=== PATIENT | female | born 1960 | race Caucasian/White ===

== ENCOUNTER 2017-06-15 18:09 | Observation (INO) | payer BC ==
[2017-06-15 18:49] LABS: VBG BASE EXCESS 4.4 (-2.0-2.0); VBG CARBOXYHEMOGLOBIN 1.7 % T HGB (0.0-6.9); VBG HCO3- 30.3 meq/L (22-28); VBG HEMOGLOBIN 12.1; VBG O2 SATURATION 51.5 (95-100); VBG POTASSIUM 3.6 (3.5-5.1); VBG pH 7.39 (7.32-7.42)
[2017-06-15 19:19] LABS: ALBUMIN 4.8 g/dl (3.5-5.0); ALKALINE PHOSPHATASE 49 U/L (38-126); ANION GAP 16.2 MEQ/L; BLOOD UREA NITROGEN 15 mg/dl (7-17); CHLORIDE 102 mEq/L (98-107); Calcium 9.7 mg/dl (8.4-10.2); Carbon Dioxide 29 mmol/L (22-30); Creatinine 1 0.66 mg/dl (0.52-1.04); Glucose 92 mg/dL (74-106); Potassium 3.7 mmol/L (3.5-5.1); SGOT/AST 26 U/L (14-36); SGPT/ALT 18 U/L (0-35); SODIUM 143 mmol/L (137-145); Total Protein 7.9 mg/dl (6.3-8.2)
[2017-06-15 19:21] LABS: BASOPHIL % 0.3 % (0.0-0.4); Basophil (Absolute #) 0.02 (0-0.4); Eosinophil % 1.1 % (0.00-5.0); Eosinophil (Absolute #) 0.07 (0-0.5); Granulocyte Absolute (ANC) 2.73 (1.4-6.9); Granulocytes % 44.9 % (36.0-66.0); Hematocrit 35.8 % (35-47); Hemoglobin 11.7 gm/dl (12.0-16.0); Lymphocyte (Absolute #) 2.87 (1.0-4.6); Mean Cell Volume 86.1 fl (78-100); Mean Corpuscular Hemoglobin 28.1 pg (26-32); Mean Corpuscular Hgb Concent. 32.7 g/dl (32-36); Monocyte (Absolute #) 0.41 (0.0-1.3); Monocytes % 6.7 % (0.0-12.0); Platelet Count 156 K/mm3 (150-450); Red Blood Count 4.16 M/mm3 (4.1-5.4); Red Cell Distribution Width 13.4 % (11.5-14.0); White Blood Count 6.1 K/mm3 (4.0-10.5)
--- NOTE | 2017-06-15 20:35 | ERPHSYRPT ---
- History of Present Illness Time Seen by Provider: 06/15/17 19:05 Source: patient Exam Limitations: clinical condition Patient Subjective Stated Complaint: dizziness and "blue color to lips" Triage Nursing Assessment: to er c/o sudden onset of dizziness when driving. pt denies any loc though states her lips were "blue" at time of incident. denies any cp, nausea or diaphoresis. pt arrives p/w/d resp easy a@ox3. NS roger on mon Physician History: PATIENT WITH A HISTORY OF PITUITARY ADENOMA COMPLAINS OF NEAR SYNCOPE WHILE DRIVING HER VEHILCE TODAY. FELT LIKE PASSING OUT. HAD A SIMILAR EPISODE OF NEAR SYNCOPE IN CLASS 1 WEEK AGO WHILE IN CLASS AND TEACHER TOLD PATIENT HER LIPS WERE BLUE. DENIES HEADACHE, VISUAL CHANGES, SLURRED SPEECH, DIZZINESS, FOCAL NUMBNESS, OR TINGLING OR WEAKNESS IN EXTREMITIES. DENIES CHEST PAIN, PALPITATIONS, DIAPHORESIS. Timing/Duration: today Severity: moderate Character of Deficits: other (NEAR SYNCOPE) Deficits: weak Baseline/Normal Cognition: alert oriented x 3 Current Cognition: alert oriented x 3 Baseline Gait: walks w/o assistance Associated Symptoms: denies symptoms Allergies/Adverse Reactions: No Known Drug Allergies Allergy (Unverified 06/15/17 18:27) Home Medications: No Reportable Medications [No Reported Medications] 06/15/17 [History] Hx Influenza Vaccination/Date Given: Yes - Review of Systems Constitutional: No Fever, No Chills Eyes: No Symptoms Ears, Nose, & Throat: No Symptoms Respiratory: No Symptoms, No Cough, No Dyspnea Cardiac: No Chest Pain, No Edema, No Syncope Abdominal/Gastrointestinal: No Symptoms, No Abdominal Pain, No Nausea, No Vomiting, No Diarrhea Genitourinary Symptoms: No Symptoms, No Dysuria Musculoskeletal: No Back Pain, No Neck Pain Skin: No Rash Neurological: Other (NEAR SYNCOPE), No Dizziness, No Focal Weakness, No Sensory Changes Psychological: No Symptoms Endocrine: No Symptoms All Other Systems: Reviewed and Negative - Past Medical History Pertinent Past Medical History: No Other Medical History: pituatary microadnoma - Past Surgical History Past Surgical History: Yes Other Surgical History: left oophrenectomy - Social History Smoking Status: Never smoker Drug Use: none - Nursing Vital Signs Nursing Vital Signs: Initial Vital Signs Temperature 98.4 F 06/15/17 18:16 Pulse Rate 59 L 06/15/17 18:16 Respiratory Rate 18 03/05/18 18:16 Blood Pressure 149/84 06/15/17 18:16 O2 Sat by Pulse Oximetry 98 06/15/17 18:16 Pain Scale Pain Intensity 0 - Diogenes Coma Scale Best Eye Response (Diogenes): (4) open spontaneously Best Verbal Response (Diogenes): (5) oriented Best Motor Response (Flushing): (6) obeys commands Flushing Total: 15 - Physical Exam General Appearance: no apparent distress, alert Eye Exam: bilateral eye: normal inspection, PERRL, EOMI Ears, Nose, Throat Exam: normal ENT inspection, moist mucous membranes Neck Exam: normal inspection, non-tender, supple Respiratory: normal breath sounds, lungs clear, airway intact, No respiratory distress Cardiovascular: regular rate/rhythm, No edema Gastrointestinal: soft, No tenderness, No distention Back Exam: normal inspection Extremity Exam: normal inspection, No pedal edema Peripheral Pulses: carotid (R): 2+, carotid (L): 2+, femoral (R): 2+, femoral (L ): 2+, dorsalis-pedis (R): 2+, dorsalis-pedis (L): 2+ Mental Status: alert, 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 3 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 Exam: normal hearing, normal speech, tongue midline Coordination/Gait: normal finger to nose, normal gait DTR: bicep (R): 2+, bicep (L): 2+, tricep (R): 2+, tricep (L): 2+ Skin Exam: normal color, warm, dry, No rash SpO2 Interpretation: normal SpO2: 100 - Course EKG Interpreted by Me: RATE, Sinus Rhythm, NORMAL AXIS - CT Exams Head CT Interpretation: Discussed w/radiologist, No/Intracranial Hemorrhag Ordered Tests: Active Orders 24 hr Category Date Time Status Up Ad Lata ROUTINE Activity 06/15/17 21:49 Ordered Call Admit Doctor for Orders ON ADMISSION Care 06/15/17 21:48 Ordered Code Status Order ROUTINE Care 06/15/17 21:46 Ordered EKG-ER Only STAT Care 06/15/17 18:34 Active IV Care Q6H Care 06/15/17 21:46 Ordered IV Insertion STAT Care 06/15/17 18:35 Active Neuro Checks Q4H Care 06/15/17 21:45 Ordered Orthostatic Vital Signs STAT Care 06/15/17 19:[address] in Observation ROUTINE Care 06/15/17 21:47 Ordered Telemetry ROUTINE Care 06/15/17 21:45 Ordered Vital Signs Q4H Care 06/15/17 21:45 Ordered Regular Diet Diet 06/15/17 Breakfast Ordered HEAD WITHOUT CONTRAST [CT] Stat Exams 06/15/17 19:48 Taken CBC W DIFF Stat Lab 06/15/17 18:45 Completed CMP Stat Lab 06/15/17 18:45 Completed TROPONIN Q3H Lab 06/15/17 21:45 Ordered TROPONIN Q3H Lab 06/16/17 00:45 Ordered TROPONIN Q3H Lab 06/16/17 03:45 Ordered TROPONIN Q3H Lab 06/16/17 06:45 Ordered TROPONIN Q3H Lab 06/16/17 09:45 Ordered VENOUS BLOOD GAS Stat Lab 06/15/17 18:40 Completed Transfer Order Routine Transfer 06/15/17 Ordered Lab/Rad Data: Laboratory Result Diagrams 06/15/17 18:45 06/15/17 18:45 Laboratory Results 06/15/17 06/15/17 06/15/17 Range/Units 18:45 18:45 18:40 WBC 6.1 (4.0-10.5) K/mm3 RBC 4.16 (4.1-5.4) M/mm3 Hgb 11.7 L (12.0-16.0) gm/dl Hct 35.8 (35-47) % MCV 86.1 (78-100) fl MCH 28.1 (26-32) pg MCHC 32.7 (32-36) g/dl RDW 13.4 (11.5-14.0) % Plt Count 156 (150-450) K/mm3 MPV 11.0 H (6-9.5) fl Gran % 44.9 (36.0-66.0) % Lymphocytes % 47.0 H (24.0-44.0) % Monocytes % 6.7 (0.0-12.0) % Eosinophils % 1.1 (0.00-5.0) % Basophils % 0.3 (0.0-0.4) % Basophils # 0.02 (0-0.4) VBG pH 7.39 (7.32-7.42) VBG pCO2 at Pat Temp 50 (42-55) mm/Hg VBG pO2 at Pat Temp 24 L (25-40) mm/Hg VBG HCO3 30.3 H* (22-28) meq/L VBG O2 Sat (Maria D) 51.5 L (95-100) VBG Base Excess 4.4 H (-2.0-2.0) VBG Hemoglobin 12.1 VBG Carboxyhemoglobin 1.7 (0.0-6.9) % T HGB POC Potassium 3.6 (3.5-5.1) Sodium 143 (137-145) mmol/L Potassium 3.7 (3.5-5.1) mmol/L Chloride 102 (98-107) mEq/L Carbon Dioxide 29 (22-30) mmol/L Anion Gap 16.2 MEQ/L BUN 15 (7-17) mg/dl Creatinine 0.66 (0.52-1.04) mg/dl Estimated GFR > 60 ML/MIN Glucose 92 (74-106) mg/dL Calcium 9.7 (8.4-10.2) mg/dl Total Bilirubin 0.40 (0.2-1.3) mg/d? AST 26 (14-36) U/L ALT 18 (0-35) U/L Alkaline Phosphatase 49 (38-126) U/L Serum Total Protein 7.9 (6.3-8.2) mg/dl Albumin 4.8 (3.5-5.0) g/dl - Progress Discussed with : Rafat (DISCUSSED WITH DR WILLIAM AT 2140 FOR ADMIT) - Departure Time of Disposition: 21:55 Departure Disposition: Observation Clinical Impression: NEAR SYNCOPE Condition: Stable Critical Care Time: No Referrals: ANA LI [Primary Care Provider] -
[2017-06-15] MEDS ORDERED: Sodium Chloride 0.9% 1000 ML 1,000 ML IV SCH (21:45)
[2017-06-15] MEDS ORDERED: TYLENOL 325 MG PO PRN (21:45)
--- NOTE | 2017-06-16 08:52 | PCM.SSS ---
History of Present Illness - Chief Complaint Chief Complaint: Near Syncope History of Present Illness: is a 56 year old female who presented to ER complaining of feeling lightheaded and faint while driving. She has had 2 instances in the past 5 days , the first was after school while standing then while driving last night. No chest pain, no shortness of breath, no nausea or vomiting. No new meds, no alcohol or drug use. Denies any extreme dietary changes. No visual changes, no numbness, tingling, weakness or paresthesias. - Review of Systems Constitutional: No Fever, No Chills Eyes: No Symptoms Ears, Nose, & Throat: No Symptoms Respiratory: No Cough, No Short Of Breath Cardiac: No Chest Pain, No Edema, No Syncope Abdominal/Gastrointestinal: No Abdominal Pain, No Nausea, No Vomiting, No Diarrhea Neurological: Dizziness, No Focal Weakness, No Headache Psychological: No Symptoms Endocrine: No Symptoms All Other Systems: Reviewed and Negative Medications & Allergies Home Medications: Home Medication List Ketorolac Tromethamine 0.5% [Acular OPTH GRETCHEN] 5 ml OP QID 06/15/17 [ History Confirmed 06/15/17] Ofloxacin Ophth 5 ml [Ocuflox OPHTHALMIC 5 ML] 1 drop OP QID 06/15/17 [ History Confirmed 06/15/17] Allergies/Adverse Reactions: Allergies Allergy/AdvReac Type Severity Reaction Status Date / Time No Known Drug Allergies Allergy Unverified 06/15/17 18:27 - Past Medical History Past Medical History: No Comment: pituatary microadnoma - Female History Are you now?: No - Past Surgical History Past Surgical History: Yes Female Surgical History: Tubal Ligation Other Surgical History: left oophrenectomy - Social History Smoking Status: Never smoker Alcohol: Occasionally Drug Use: none - Physical Exam Vital Signs: Vital Signs - 24 hr Temp Pulse Resp BP Pulse Ox 06/16/17 07:36 76 18 112/63 95 06/16/17 07:35 98.6 F 77 18 119/63 95 06/16/17 07:34 98.6 F 59 L 18 102/56 96 06/16/17 04:00 98.5 F 60 20 102/57 96 06/15/17 23:06 97.9 F 58 L 18 120/59 99 06/15/17 21:55 100 06/15/17 21:34 66 18 128/81 99 06/15/17 19:23 58 L 21 124/70 100 06/15/17 18:16 98.4 F 59 L 18 149/84 98 General Appearance: no apparent distress, alert Neurologic Exam: alert, oriented x 3, cooperative, normal mood/affect, nml cerebellar function, nml station & gait, sensation nml, No motor deficits Eye Exam: PERRL/EOMI, eyes nml inspection Respiratory Exam: normal breath sounds, lungs clear, No respiratory distress Cardiovascular Exam: regular rate/rhythm, normal heart sounds, normal peripheral pulses Gastrointestinal/Abdomen Exam: soft, normal bowel sounds, No tenderness, No mass Extremity Exam: normal inspection, normal range of motion, pelvis stable Skin Exam: normal color, warm, dry, No rash Results - Labs Lab/Micro Results: Lab Results-Last 24 Hours 06/16/17 06/16/17 06/16/17 Range/Units 01:15 04:19 06:40 Troponin I < 0.012 < 0.012 < 0.012 (0.000-0.034) ng/ml - Radiology Impressions Radiology Exams & Impressions: Radiology Procedures Category Date Time Status ECHO W/2D AND DOPPLER [US] Routine Exams 06/16/17 Ordered MRI BRAIN W & W/O CONTRAST [MRI] Urgent Exams 06/16/17 08:46 Ordered Assessment/Plan (1) Pre-syncope Current Visit: Yes Status: Acute Assessment & Plan: troponins are negative, EKG and telemetry have been uneventful. will get echo and MRI brain to evaluate pituitary tumor. hasn't had followup in years, was seen and released by neurosurgery in [place] many years ago. unlikely related to this with lack of visual changes or other symptoms. (2) Pituitary adenoma Current Visit: Yes Status: Acute Code(s): D35.2 - BENIGN NEOPLASM OF PITUITARY GLAND Hospital Summary - Vitals & Intake/Output Vital Signs: Vital Signs Temperature 98.6 F 06/16/17 07:35 Pulse Rate 76 06/16/17 07:36 Respiratory Rate 18 06/16/17 07:36 Blood Pressure 112/63 06/16/17 07:36 O2 Sat by Pulse Oximetry 95 06/16/17 07:36 Intake & Output: Intake & Output 0306/14/17 06/15/17 06/16/17 11:59 11:59 11:59 11:59 Intake Total 1376 Output Total 150 Balance 1226 Weight 63.7 kg - Lab Result Diagrams: 06/15/17 18:45 06/15/17 18:45 Lab Results-Last 24 Hrs: Lab Results-Last 24 Hours 06/16/17 06/16/17 06/16/17 Range/Units 01:15 04:19 06:40 Troponin I < 0.012 < 0.012 < 0.012 (0.000-0.034) ng/ml - Radiology Exams Ordered Rad Exams-Entire Visit: Radiology Procedures Category Date Time Status ECHO W/2D AND DOPPLER [US] Routine Exams 06/16/17 Ordered MRI BRAIN W & W/O CONTRAST [MRI] Urgent Exams 06/16/17 08:46 Ordered - Discharge Disposition: Home, Self-Care Condition: Stable Prescriptions: No Action Ofloxacin Ophth 5 ml [Ocuflox OPHTHALMIC 5 ML] 1 drop OP QID Ketorolac Tromethamine 0.5% [Acular OPTH GRETCHEN] 5 ml OP QID Follow up with: ANA LI [Primary Care Provider] - 1 Week
[2017-06-16 11:32] VITALS: BP 106/56; PULSE 56; O2SAT 96
--- NOTE | 2017-06-16 13:44 | XRAY ---
Indication: 2 presyncopal episodes. History of pituitary microadenoma. Thin section pre-and post T1 sagittal and coronal MRI sella turcica performed. Then whole brain MRI was performed using pre-and post T1, T2, FLAIR, diffusion, and ADC sequences. 10 cc Magnevist contrast use. Comparison: None Pituitary gland is prominent for patient's age measuring 10 x 11 x 8 mm in greatest AP, transverse, and CC projections respectively. No suspicious pituitary lesion. Normal appearing pituitary stalk and optic chiasm. Parasellar internal carotid arteries are bilaterally symmetric with normal flow void signal. Whole brain images demonstrates symmetry of the ventriculosulcal pattern. No acute intracranial hemorrhage, abnormal extra-axial fluid collection, or mass effect. Diffusion images are negative for restricted signal. Following gadolinium, there is no abnormal enhancing intra-or extra-axial mass. Fourth ventricle is midline without hydrocephalus. 7/8 cranial nerve complex bilaterally symmetric. Normal flow void signal within the major intracranial circulation. Normal appearing craniocervical junction and sella turcica. Paranasal sinuses are clear. Impression: 1. Prominent pituitary gland for patient's age. No suspicious pituitary lesion to suggest microadenoma. Of note, 10-30% microadenomas can only be seen on dynamic contrast-enhanced scans. Does the patient have signs/symptoms related to hyperprolactinemia? A prominent gland could also represent pituitary hyperplasia. 2. Negative MRI brain with contrast exam.
--- NOTE | 2017-06-16 14:30 | XRAY ---
Indication: Near syncope. History of pituitary adenoma. Multiple contiguous axial images obtained through the head without contrast. Comparison: None Prominent pituitary gland consistent with patient's history of adenoma. Otherwise no acute intracranial hemorrhage, abnormal extra-axial fluid collection, or mass effect. Fourth ventricle is midline without hydrocephalus. Scott-white matter differentiation preserved. Bony calvarium intact. Visualized paranasal sinuses and mastoid air cells are clear. Impression: Known pituitary adenoma. No acute intracranial abnormalities. CTDI 70.00
--- NOTE | 2017-06-19 08:24 | ECHO ---
DATE OF PROCEDURE: 06/16/2017 CLINICAL INFORMATION: Presyncope. The M-mode 2D, and Doppler echocardiogram including color flow Doppler shows normal contractility of the left ventricle with an ejection fraction between 55 and 64%. The left ventricle is normal in size with a dimension of 4.7 cm. Septal wall thickness of left ventricular posterior wall thickness is normal at 1.0 cm. There is no apical thrombus present. The right ventricle is normal in size and function. The left atrium is normal with a dimension of 3.5 cm. The right atrium is normal. The interatrial septum is intact. The aortic valve opens well and is trileaflet. There is mitral valve leaflet thickening associated with a trace amount of mitral regurgitation present. There is mild tricuspid regurgitation with a normal right ventricular systolic pressure. The pulmonic valve is not well visualized. The aortic root is normal with a dimension of 2.5 cm. There is no pericardial effusion present. IMPRESSION: 1) MILD TRICUSPID REGURGITATION. 2) NORMAL RIGHT VENTRICULAR SYSTOLIC PRESSURE. 3) NORMAL CONTRACTILITY OF THE LEFT VENTRICLE.
== END 2017-06-16 14:35 | disposition home or self-care (01) ==
LOC: ED 18:09 → MED SURG 22:25
PROVIDERS: ADMIT Family Medicine; ATTEND Family Medicine
DX: R55 Syncope and collapse (principal); D35.2 Benign neoplasm of pituitary gland
CPT/HCPCS: 36415; 70450; 70553; 80053; 82805; 84484; 85025; 93268; 93306; 96360; 99285; G0378; A9270-GY

== ENCOUNTER 2020-09-20 06:57 | Day surgery (SDC) | payer BC ==
--- NOTE | 2020-09-14 14:59 | HP ---
DATE OF SURGERY: 09/20/2020 HISTORY OF PRESENT ILLNESS: The patient presents for follow up colonoscopy. It looks like the patient had a colonoscopy back in 2016 and the patient had colon polyp. The patient states she has a family history of colon cancer. PAST MEDICAL HISTORY: Hyperlipidemia. PAST SURGICAL HISTORY: Eye surgery. Tubal ligation. Cyst removal. ALLERGIES: NKDA. MEDICATIONS: Pravastatin. FAMILY HISTORY: Colon cancer. SOCIAL HISTORY: Occasional alcohol. REVIEW OF SYSTEMS: CONSTITUTIONAL: Denies fever or chills. CHEST: Denies shortness of breath. CVS: Denies chest pain. ABDOMEN: Denies abdominal pain, nausea, vomiting, diarrhea, constipation or rectal bleeding. INTEGUMENTARY: Negative. PHYSICAL EXAMINATION: GENERAL: No acute distress. CHEST: Nonlabored. No shortness of breath. CVS: Regular rate and rhythm. ABDOMEN: Soft, nontender. EXTREMITIES: No edema. NEUROLOGIC: Alert. PSYCHIATRIC: Appropriate. IMPRESSION: Screening. History of colon polyps, positive family history. PLAN: Colonoscopy with Dr. Juarez Menendez. As dictated by Christy Matias NP.
[~2020-09-20 06:57] MED LIST: Lactated Ringers 1,000 ML IV SCH
[2020-09-20] MEDS ORDERED: Lactated Ringers 1,000 ML IV ONE ×2 (06:59→10:07)
[2020-09-20] MEDS ORDERED: DIPRIVAN 200 MG/20 ML IV ONE ×3 (09:53→10:22)
[2020-09-20] MEDS ORDERED: Versed 2 MG/2 ML Injection ONE (09:53)
--- NOTE | 2020-09-20 11:00 | OP ---
SURGERY DATE/TIME: 09/20/2020 0956 PREOPERATIVE DIAGNOSIS: Five year follow up of polyps. POSTOPERATIVE DIAGNOSIS: One small 0.5 cm polyp. PROCEDURES: 1) Colonoscopy complete to cecum with hot polypectomy x1. 2) Additional findings of small internal hemorrhoids. SURGEON: Juarez Menendez M.D. ANESTHESIA: MAC. COMPLICATIONS: None. CONDITION: Stable. INDICATION: A patient requiring evaluation. DESCRIPTION OF PROCEDURE: Taken to endoscopy. MAC sedation provided. Anal digital examination satisfactory. Scope introduced. Scope advanced to the cecum. Base of the cecum, ileocecal valve and appendiceal orifice area was all normal. On circumferential withdrawal ascending, hepatic, transverse, splenic fairly high flexion. The descending, sigmoid no diverticulosis. Rectum - At the sigmoid rectal junction a 0.5 cm probably hyperplastic lesion was taken with hot forceps. Rectum, anus small internal hemorrhoids. The patient tolerated the procedure satisfactorily. We will leave her a five year follow up.
[2020-09-20 11:08] VITALS: O2SAT 100
[2020-09-20 11:09] VITALS: PULSE 65
[2020-09-20 11:11] VITALS: BP 131/68
== END 2020-09-20 11:40 | disposition home or self-care (01) ==
LOC: SDC 06:57
PROVIDERS: ATTEND Surgery
DX: Z12.11 Encounter for screening for malignant neoplasm of colon (principal); Z09 Encounter for follow-up examination after completed treatment for conditions other than malignant neoplasm; Z86.010 Personal history of colon polyps; Z80.0 Family history of malignant neoplasm of digestive organs; K64.8 Other hemorrhoids; K63.5 Polyp of colon; E78.5 Hyperlipidemia, unspecified; Z79.899 Other long term (current) drug therapy
CPT/HCPCS: 88305; J2250; J2704

== ENCOUNTER 2023-03-19 07:15 | Day surgery (SDC) | payer BC ==
--- NOTE | 2023-03-18 14:28 | HP ---
DATE OF SURGERY: 03/19/2023 HISTORY OF PRESENT ILLNESS: The patient is a 62-year-old female presents with anemia. The patient had her mother of colon cancer. The patient has not had colonoscopy for about two years now. PAST MEDICAL HISTORY: Hyperlipidemia. PAST SURGICAL HISTORY: Cataract. Hysterectomy. Tubal ligation. Endometrial thermal ablation. ALLERGIES: NKDA. MEDICATIONS: Flonase, multivitamin, Pravastatin, tramadol. FAMILY HISTORY: Colon cancer. SOCIAL HISTORY: Occasional alcohol. REVIEW OF SYSTEMS: CONSTITUTIONAL: Denies fever or chills. CHEST: Denies shortness of breath. CVS: Denies chest pain. ABDOMEN: Denies abdominal pain. PHYSICAL EXAMINATION: GENERAL: No acute distress. CHEST: Nonlabored. No shortness of breath. CVS: Regular rate and rhythm. ABDOMEN: Soft. IMPRESSION: Anemia, family history of colon cancer. PLAN: EGD and colonoscopy with Dr. Juarez Menendez. As dictated by Christy Matias NP.
[2023-03-19 07:12] VITALS: RESP 18
[2023-03-19] MEDS ORDERED: DIPRIVAN 200 MG/20 ML IV ONE ×3 (09:14→09:46)
[2023-03-19] MEDS ORDERED: Xylocaine-Mpf 2% 5 Ml Vial ONE (09:15)
[2023-03-19] MEDS ORDERED: Versed 2 MG/2 ML Injection ONE (09:15)
[2023-03-19] MEDS ORDERED: GlucaGen 1 MG ONE (09:42)
[2023-03-19 10:09] VITALS: TEMP 98.3
[2023-03-19 10:15] VITALS: O2SAT 100
[2023-03-19 10:26] VITALS: BP 96/66; PULSE 71
--- NOTE | 2023-03-19 12:33 | OP ---
SURGERY DATE/TIME: 03/19/2023 0931 PREOPERATIVE DIAGNOSES: Anemia with no recent endoscopic examination. POSTOPERATIVE DIAGNOSES: 1) Mild hemorrhagic gastritis. 2) Grade 2/4 gastroesophageal reflux disease. 3) Long redundant and fairly wide colon with moderate internal hemorrhoids. PROCEDURES: 1) EGD with cold biopsy. 2) Colonoscopy complete to cecum with pictures of the appendiceal area, ileocecal valve and cecum. SURGEON: Juarez Menendez M.D. ANESTHESIA: General. COMPLICATIONS: None. CONDITION: Stable. INDICATION: The patient has a recent history of anemia. She had a colonoscopic examination about two years ago and she has not had an EGD recently at all. DESCRIPTION OF PROCEDURE: She was taken to endoscopy. Left lateral decubitus position. MAC sedation provided. Scope introduced. Pharyngoesophageal junction normal. Esophagus normal down to gastroesophageal junction. A tongue of esophagitis posterior and to the left is present about 2 x 2 cm. There was only around about 90 degrees of esophagus. There was no hiatal hernia. Fundus, body were normal. The antrum had hemorrhagic gastritis very light but it was it was real. Medical Charge Entry Specialist cold biopsy. Pylorus satisfactory. Duodenal bulb satisfactory. Second portion satisfactory. Scope looped upon itself. No hiatal hernia. Scope withdrawn. Anal digital examination satisfactory tone. Scope introduced. There were moderate internal hemorrhoids. The scope advanced to the cecum. The splenic flexure is very tall, very long and redundant. The general diameter of the colon was about 4 to 5 inches. Base of the cecum, ileocecal valve, appendiceal orifice normal. Ascending, hepatic, transverse, splenic, descending, sigmoid, rectum, anus there were moderate internal hemorrhoids. The prep was excellent. Withdrawal time about six minutes. Anticipated follow up five years. Pictures were given to the . She was placed on Protonix.
== END 2023-03-19 10:40 | disposition home or self-care (01) ==
LOC: SDC 07:15
PROVIDERS: ATTEND Surgery
DX: D64.9 Anemia, unspecified (principal); K29.70 Gastritis, unspecified, without bleeding; K21.9 Gastro-esophageal reflux disease without esophagitis; K64.8 Other hemorrhoids; Z80.0 Family history of malignant neoplasm of digestive organs
CPT/HCPCS: J1610; J2250; J2704